=== PATIENT | male | born 1945 | race Caucasian/White ===

== ENCOUNTER 2020-05-08 07:01 | Inpatient (IN) | payer OTHER ==
[~2020-05-08] VITALS: Ht 177.8 cm; Wt 68.0 kg
[2020-05-08] MEDS ORDERED: SODIUM CHLORIDE 0.9% 250 ML IV ONE (07:11)
[2020-05-08] MEDS ORDERED: NOREPINEPHRINE 8 MG/250ML KIT 250 ML IV SCH (07:15)
[2020-05-08] MEDS ORDERED: NOREPINEPHRINE BITARTRATE 2 ML IV ONE (07:20)
[2020-05-08] MEDS ORDERED: ETOMIDATE (2MG/ML) 20ML VIAL IV ONE ×2 (07:56→07:57)
[2020-05-08] MEDS ORDERED: SUCCINYLCHOLINE CHLORIDE 20 MG/ML 10ML VIAL IV ONE (07:57)
[2020-05-08] MEDS ORDERED: MIDAZOLAM DRIP 50 mg/50mL 50 ML IV ONE (08:01)
[2020-05-08 08:39] LABS: Hematocrit 32.4 % (41.0-53.0); Red Blood Cells 3.18 10^6/uL (4.5-5.90)
[2020-05-08 08:40] LABS: Mean Corpuscular Hemoglobin 31.5 pg (28.0-32.0); Mean Corpuscular Hgb Conc. 30.8 g/dL (32.0-36.0); Platelet Count (auto) 61 10^3/uL (140-450); Red Cell Distribution Width 17.2 % (11.8-14.3)
[2020-05-08 08:43] LABS: Basophils % (manual) 0 (0.0-2.0); Eosinophils % (manual) 0 (0-7); Promyelocytes % 0
[2020-05-08 08:55] LABS: INR 1.35 (0.9-1.15); Partial Thromboplastin Time 36.2 sec (23.64-32.05)
[2020-05-08 09:05] LABS: Albumin 1.3 g/dL (3.4-5.0); BUN/Creatinine Ratio 29.7; Calcium 8.4 mg/dL (8.5-10.1); Magnesium 3.3 mg/dL (1.6-2.6)
[2020-05-08 09:10] LABS: Bilirubin, Total 6.9 mg/dL (0.2-1.0); Total Protein 4.5 g/dL (6.4-8.2)
[2020-05-08] MEDS ORDERED: SODIUM BICARBONATE 8.4 % INJ 50ML VIAL IV ONE ×2 (09:30→09:45)
[2020-05-08] MEDS ORDERED: DOPamine 1600MCG/ML D5W 250 ML IV ONE ×2 (09:30→12:49)
[2020-05-08] MEDS ORDERED: CALCIUM GLUC 4.65meq/50ml D5AE 50 ML IV ONE (09:30)
[2020-05-08 09:36] LABS: Band Neutrophils % (manual) 9; Blast Cells 1; Lymphocytes % (manual) 72 (10.0-50.0); Metamyelocytes % 4; Monocytes % (manual) 4 (0-12); Myelocytes % 2; Reactive Lymphocytes 1
[2020-05-08 09:47] LABS: White Blood Cell 1.8 10^3/uL (4.4-10.8)
[2020-05-08] MEDS ORDERED: PHENYLEPHRINE IV 250 ML IV SCH (10:47)
[2020-05-08] MEDS ORDERED: SODIUM BICARBONATE 8.4% INJ 50ML SYRINGE ONE (10:59)
[2020-05-08] MEDS ORDERED: MIDAZOLAM DRIP 50 mg/50mL 50 ML IV SCH (11:13)
[2020-05-08] MEDS ORDERED: SODIUM CHLORIDE 0.9% 1,000 ML IV SCH (12:54)
[2020-05-08] MEDS ORDERED: ONDANSETRON HCL 4 MG/2 ML VIAL IV PRN (13:00)
[2020-05-08] MEDS ORDERED: NITROGLYCERIN 0.4 MG SL TAB SL PRN (13:00)
[2020-05-08] MEDS ORDERED: MORPHINE SULF INJ 2 MG/ML SYRINGE 1ML IV PRN ×3 (13:00→18:30)
[2020-05-08] MEDS ORDERED: SODIUM CHLORIDE 0.9% 1,000 ML IV ONE (13:15)
[2020-05-08 14:32] VITALS: BP 77/48
[2020-05-08] MEDS ORDERED: OMEP-263 PO (14:50)
[2020-05-08] MEDS ORDERED: CYCL5TAB PO (14:50)
[2020-05-08] MEDS ORDERED: ONDA-180 PO (14:50)
[2020-05-08] MEDS ORDERED: DOPamine 1600MCG/ML D5W 250 ML IV SCH (15:48)
[2020-05-08 18:16] VITALS: BP 68/38
[2020-05-08] MEDS ORDERED: LORazepam 2MG/ML-1ML VIAL IV ONE (18:30)
== END 2020-05-08 18:43 | disposition expired | DRG 871 ==
LOC: EDBD 07:01 → ER 07:01 → OVERFLOW 07:02
PROVIDERS: ADMIT Internal Medicine; ATTEND Internal Medicine
PROC: 06HY33Z Insertion of Infusion Device into Lower Vein, Percutaneous Approach (ICD-10-PCS; principal; 2020-05-08)
PROC: 5A1935Z Respiratory Ventilation, Less than 24 Consecutive Hours (ICD-10-PCS; 2020-05-08)
PROC: 0BH17EZ Insertion of Endotracheal Airway into Trachea, Via Natural or Artificial Opening (ICD-10-PCS; 2020-05-08)
DX: R57.1 Hypovolemic shock (principal); J96.00 Acute respiratory failure, unspecified whether with hypoxia or hypercapnia; C22.9 Malignant neoplasm of liver, not specified as primary or secondary; I95.9 Hypotension, unspecified; Z66 Do not resuscitate; Z51.5 Encounter for palliative care; K21.9 Gastro-esophageal reflux disease without esophagitis; Z85.05 Personal history of malignant neoplasm of liver; D64.9 Anemia, unspecified; E87.5 Hyperkalemia
CPT/HCPCS: 31500; 36415; 36556; 36600; 51702; 71045; 74176; 80053; 82140; 82805; 83605; 83690; 83735; 83880; 84484; 85007; 85027; 85610; 85730; 87040; 87070; 87077; 87186; 87205; 93005; 94002; 96365; 96366; 96368; 96375; 99291; G0378; J0330; J0610; J2250